=== PATIENT | female | born 1960 | race Caucasian/White ===

== ENCOUNTER 2023-04-11 06:05 | Day surgery (SDC) | payer OTHER, SELFPAY ==
[2022-12-27 10:55] VITALS: BMI 28.3
[2023-03-25 12:20] VITALS: BMI 28.6
--- NOTE | 2023-04-10 11:54 | PM.HPGS ---
History of Present Illness History of Present Illness Consent: Risks, benefits, and alternatives have been discussed and questions answered. Patient agrees to proceed with procedure. Chief complaint: Neoplasm Screening Narrative: Sharri Gaviria is a 63 year old female referred for colon cancer screening. Review of Systems Review of Systems: All systems reviewed & are unremarkable except as noted in HPI and below PMFSH Past Medical History Medical History Anxiety Hyperlipidemia Overweight (BMI 25.0-29.9) Family History Family History Mother Family history of thyroid disease Sibling Family history of thyroid disease Social History Social History Smoking status: Never smoker Alcohol intake: never Substance use: never Substance use type: does not use Living arrangements: with family Spiritual care concerns: No Meds Home Medications and Allergies Home Medications Medication Instructions Recorded Confirmed Type alprazolam 0.25 mg tablet (Xanax) 0.25 mg PO TID PRN anxiety #60 tabs 06/26/20 04/11/23 Rx escitalopram oxalate 10 mg tablet 10 mg PO DAILY 03/25/23 04/11/23 History ezetimibe 10 mg tablet 10 mg PO DAILY 03/25/23 04/11/23 History Allergies Allergy/AdvReac Type Severity Reaction Status Date / Time latex Allergy Unknown Rash Verified 04/11/23 06:33 morphine Allergy Unknown Rash Verified 04/11/23 06:33 Sulfa (Sulfonamide Allergy Unknown Rash Verified 04/11/23 06:33 Antibiotics) Exam Const: General: alert Orientation/consciousness: patient oriented x3 Resp: Auscultation: clear to auscultation bilaterally Cardio: Rhythm: regular rhythm GI: GI Palp: Yes Soft to palpation and No Tenderness to palpation present (GI) Neuro: General: patient oriented x3 Assessment and Plan Assessment and plan (1) Colon cancer screening: Code(s): Z12.11 - Encounter for screening for malignant neoplasm of colon Status: Acute Assessment and Plan: Colonoscopy with possible biopsy or polypectomy or cautery or injection of substances. Plan Colonoscopy with possible biopsy or polypectomy or cautery or injection of substances.
--- NOTE | 2023-04-10 12:50 | WPDANESEPPF ---
Anes - Initial Pre Proc Eval Procedure: Operation Date: 04/11/23 07:30 Proposed Procedures p Screening Colonoscopy - William Garces MD Date/Time: 04/10/23 12:50 Surgeon: William Garces MD Pre Op Diagnosis: Neoplasm Screening Patient Data Age: 63 Gender: F Height: 1.57 m Weight: 71 kg Allergies Allergy/AdvReac Type Severity Reaction Status Date / Time latex Allergy Unknown Rash Verified 04/11/23 06:33 morphine Allergy Unknown Rash Verified 04/11/23 06:33 Sulfa (Sulfonamide Allergy Unknown Rash Verified 04/11/23 06:33 Antibiotics) Home Medications Medication Instructions Recorded Confirmed Type alprazolam 0.25 mg tablet (Xanax) 0.25 mg PO TID PRN anxiety #60 tabs 06/26/20 04/11/23 Rx escitalopram oxalate 10 mg tablet 10 mg PO DAILY 03/25/23 04/11/23 History ezetimibe 10 mg tablet 10 mg PO DAILY 03/25/23 04/11/23 History Patient hx anesthesia problems: none Family hx anesthesia problems: none Results Review: All pre-operative results and documents have been reviewed as part of the pre-operative evaluation. [facility] Past Medical History Medical History Anxiety Hyperlipidemia Overweight (BMI 25.0-29.9) Family History Family History Mother Family history of thyroid disease Sibling Family history of thyroid disease Social History Social History Smoking status: Never smoker Alcohol intake: never Substance use: never Substance use type: does not use Living arrangements: with family Spiritual care concerns: No Anes - Eval Final PreProcedure Day of Procedure 04/10/23 12:50 Patient weight: overweight Heart: regular rate and rhythm Lungs: clear to auscultation and normal air movement Airway: Mallampati scale class II Neurological: alert and oriented Last oral intake: >/= 8 hours ASA classification: II Emergent: no Anesthetic plan: proceed Anesthesia type and monitoring: general GIVS Results Review: All pre-operative results and documents have been reviewed as part of the pre-operative evaluation. Informed Consent: The patient's anesthetic plan and its attendant risks and benefits were discussed with the patient/family/POA. Questions were solicited and answers provided to the satisfaction of the patient/family/POA.
[2023-04-11 06:35] VITALS: BMI 27.1
[2023-04-11 06:36] VITALS: BP 131/86; PULSE 77; RESP 16; TEMP 36.1; O2SAT 100
[2023-04-11] MEDS: LACTATED RINGERS 1,000 ML 150 ML IV CONT (06:46)
[2023-04-11 07:50] VITALS: BP 119/76; PULSE 74; RESP 14; O2SAT 100
[2023-04-11 08:00] VITALS: BP 132/74; PULSE 63; RESP 16; O2SAT 100
[2023-04-11 08:10] VITALS: BP 139/75; PULSE 61; RESP 16; O2SAT 99
--- NOTE | 2023-04-11 10:35 | WPDANESPN ---
Anes - Prog Note Post-Op Date/Time: 04/11/23 10:35 Cardiovascular status: normal Respiratory status: normal Airway patency: baseline Mental status: baseline Post-Op hydration status: normal Vital Signs: Last Vital Signs Temp 36.1 C L 04/11/23 06:36 Pulse 61 04/11/23 08:10 Resp 16 04/11/23 08:10 BP 139/75 04/11/23 08:10 Pulse Ox 99 04/11/23 08:10 O2 Del Method Room Air 04/11/23 08:10 Pain Score (VAS): 0 I/O: Intake & Output 04/10/23 04/11/23 04/11/23 23:59 07:59 15:59 Intake Total 200 200 Balance 200 200 Post-procedural complaints: none Patient Feedback: Patient satisfied with anesthetic care.
== END 2023-04-11 08:30 | disposition home or self-care (01) ==
PROVIDERS: PCP Physician Assistant; Visit Provider Internal Medicine Gastroenterology
PROC: 0DJD8ZZ Inspection of Lower Intestinal Tract, Via Natural or Artificial Opening Endoscopic (ICD-10-PCS; CPT 45378; principal; 2023-04-11 07:30)
DX: Z12.11 Encounter for screening for malignant neoplasm of colon (principal)
CPT/HCPCS: 45385

== ENCOUNTER 2023-04-11 09:00 | Outpatient (NON) | payer OTHER, SELFPAY | END 2023-04-11 09:01 | disposition home or self-care (01) | LOC: ANHLAB 04-12 08:46 | PROVIDERS: PCP Physician Assistant; Visit Provider Internal Medicine Gastroenterology | DX: Z12.11 Encounter for screening for malignant neoplasm of colon (principal) | CPT/HCPCS: 88305 ==

== ENCOUNTER → 2023-11-15 15:06 | Outpatient (CLI) | payer BC, SELFPAY ==
--- NOTE | ~2023-11-15 | MM_ITS ---
EXAMINATION: MM screening germaine BI w christine HISTORY: Screening mammogram TECHNIQUE: Craniocaudal and mediolateral oblique 3-D tomosynthesis images were obtained and synthetic 2-D images were generated. CAD analysis was submitted and interpreted. COMPARISON: 04/20/2019, 10/05/2015 bilateral screening mammogram examinations BREAST PARENCHYMAL COMPOSITION: The breasts are heterogeneously dense, which may obscure small masses . FINDINGS: Bilateral mammographic asymmetries. Bilateral diagnostic mammography is recommended, with ultrasound if required. IMPRESSION: 1. Bilateral mammographic asymmetries 2. Bilateral diagnostic mammography is recommended, with ultrasound if required BI-RADS Category 0: Incomplete: Needs additional imaging evaluation. Reviewed, dictated and finalized at location A. WASHER
== END ==
PROVIDERS: PCP Physician Assistant; Visit Provider Physician Assistant
DX: Z12.31 Encounter for screening mammogram for malignant neoplasm of breast (principal); R92.8 Other abnormal and inconclusive findings on diagnostic imaging of breast
CPT/HCPCS: 77063; 77067

== ENCOUNTER 2024-01-06 09:09 | Outpatient (CLI) | payer BC, SELFPAY ==
--- NOTE | ~2024-01-06 | MMUS_ITS ---
EXAMINATION: MM diagnostic germaine BI w christine, US breast BI complete HISTORY: Follow-up bilateral breast asymmetries TECHNIQUE: Additional 3-D tomosynthesis images of the breasts were performed and synthetic 2-D images were generated. CAD analysis was submitted and interpreted. High resolution bilateral complete breas t ultrasound was performed. COMPARISON: Comparison to multiple prior studies sequentially, with oldest reviewed study dated 09/08. BREAST PARENCHYMAL COMPOSITION: Dense: The breasts are heterogeneously dense, which may obscure small masses FINDINGS: MAMMOGRAPHIC FINDINGS: No discrete mass, suspicious calcifications or architectural distortion in either breast to suggest m alignancy. ULTRASOUND: Complete bilateral US of all 4 quadrants of the breasts and retroareolar region was reviewed. In the right breast at 8:00, 5 cm from the nipple there is a 3 mm cyst. No suspicious masses are identified in the left breast to suggest malignancy. IMPRESSION: 1. No evidence for malignancy in either breast. 2. Routine yearly screening mammogram and regular clinical breast examination are recommended. BI-RADS Category 2: Benign finding(s). Reviewed, dictated and finalized at location A. IMPRESSION: 1. No evidence for malignancy in either breast. 2. Routine yearly screening mammogram and regular clinical breast examination a re recommended. BI-RADS Category 2: Benign finding(s).
== END 2024-01-06 09:10 ==
LOC: MICIMG 09:10
PROVIDERS: PCP Physician Assistant; Visit Provider Physician Assistant
DX: R92.8 Other abnormal and inconclusive findings on diagnostic imaging of breast (principal)
CPT/HCPCS: 76641; 77062; 77066; G0279